=== PATIENT | male | born 1965 | race African-American/Black ===

== ENCOUNTER 2020-11-04 04:15 | Emergency (ER) | payer OTHER ==
[2020-11-04] MEDS ORDERED: HYDROcodone/Acetaminophen 5/325 mg Tablet ONE (04:49)
[2020-11-04] MEDS ORDERED: Acetaminophen 325 MG TAB ONE (04:50)
[2020-11-04] MEDS ORDERED: Ketorolac Tromethamine 60 MG/2 ML VIAL ONE (04:50)
[2020-11-04] MEDS ORDERED: Cyclobenzaprine 10 MG TAB ONE (04:50)
== END 2020-11-04 05:11 | disposition home or self-care (01) ==
LOC: MADERS 04:15
DX: S43.402A Unspecified sprain of left shoulder joint, initial encounter (principal); S16.1XXA Strain of muscle, fascia and tendon at neck level, initial encounter; W10.9XXA Fall (on) (from) unspecified stairs and steps, initial encounter
CPT/HCPCS: 71045; 96372; J1885